=== PATIENT | male | born 1975 ===

== ENCOUNTER 2024-11-23 13:16 | Outpatient (REF) | payer BC, SELFPAY ==
[2024-11-23 15:22] LABS: Abs Immature Grans 0.01 10^3/uL (0.0-0.06); Absolute Basophil Count 0.05 10^3/uL (0.0-0.2); Absolute Lymphocyte Count 1.71 10^3/uL (1.2-3.4); Absolute Monocyte Count 0.62 10^3/uL (0.1-0.8); Absolute Neutrophil Count 3.76 10^3/uL (1.2-6.7); Basophils % 0.8 %; Eosinophils % 1.6 %; HCT 50.3 % (40.0-50.0); HGB 17.4 g/dL (13.5-17.5); Immature Grans % 0.2 %; Lymphocytes % 27.4 %; MCH 30.3 pg (27.0-33.0); MCHC 34.6 % (32.0-36.0); MCV 88 fL (80-95); MPV 10.3 fL (8.0-11.0); Monocytes % 9.9 %; Neutrophils % 60.1 %; Platelet Count 246 10^3/uL (130-400); RBC 5.74 10^6/uL (4.36-5.78); RDW 11.9 % (11.8-14.1); RDW-SD 38.1 fL; WBC 6.25 10^3/uL (4.4-10.8)
[2024-11-23 17:18] LABS: Hemoglobin A1C 5.3 % (<5.7)
[2024-11-23 17:23] LABS: ALT 32 U/L (16-63); AST 22 U/L (15-37); Albumin 4.2 g/dL (3.4-5.0); Alkaline Phosphatase 74 U/L (46-116); Anion Gap 13.4 mmol/L (3-11); BUN 15 mg/dL (7-18); Bilirubin, Total 0.7 mg/dL (0.2-1.0); CO2 21.6 mmol/L (21.0-32.0); CREATININE 0.6 mg/dL (0.70-1.30); Calcium 10.5 mg/dL (8.5-10.1); Calculated LDL 109 mg/dL (<100); Chloride 108 mmol/L (98-107); Cholesterol 201 mg/dL (<200); Estimated GFR 118.34 (mL/min/1.73m2); Glucose 90 mg/dL (74-106); HDL Cholesterol 55 mg/dL (>or=40); Potassium 4.4 mmol/L (3.5-5.1); Sodium 143 mmol/L (136-145); TSH 3.22 uIU/mL (0.36-3.74); Total Protein 7.6 g/dL (6.4-8.2); Triglyceride 186 mg/dL (<150)
[2024-11-24 10:43] LABS: HIV-1/2 Ag & Ab Screen Negative (Negative)
[2024-11-24 11:03] LABS: Hepatitis C Ab w Rflx HCV PCR Negative (Negative)
== END 2024-11-23 13:17 | disposition home or self-care (01) ==
LOC: NCHCN 13:16
PROVIDERS: Visit Provider Family Medicine
DX: Z00.00 Encounter for general adult medical examination without abnormal findings (principal)
CPT/HCPCS: 80053; 80061; 86803; 87389; 83036; 84443; 85025

== ENCOUNTER 2025-02-07 06:13 | Day surgery (SDC) | payer BC, SELFPAY ==
--- NOTE | 2025-02-06 03:35 | W.PREOPHP ---
Assessment and Plan Assessment and plan (1) Encounter for screening colonoscopy: Status: Acute Assessment and plan: We reviewed the role of screening colonoscopy as part of routine health maintenance. I reviewed the risks and the benefits of the procedure. Luisito had the opportunity to ask any questions. He is able to provide informed consent, and we can proceed with colonoscopy as planned History of Present Illness History of Present Illness Chief Complaint: Screening colonoscopy Narrative: 48 y/o male with history of ETOH abuse and anxiety presents for colonoscopy screening pre-op. His last screening was in 2019 , which was unremarkable. He has a family history of colon cancer in his father whom was dx at the age of 60. He denies any changes in bowel habits including bloody or black tarry stools, abdominal pain, diarrhea or constipation. He denies constitutional symptoms. He denies chest pain, palpitations, dyspnea or dyspnea with exertion. He denies prior history or family history of adverse reactions or complications with anesthesia. The patient denies any history of stroke, [place], seizures, bleeding or clotting disorders. He denies having any implanted metal in his body. Since his last office encounter, there have been no major changes with regards to the interval history PFSH All Active Problems Encounter for screening colonoscopy (Acute) Anxiety (Chronic) Poor sleep (Acute) Medical History History of ETOH abuse (~2020) Family history of colon cancer in father dx in 60's Surgical History H/O inguinal hernia repair R History of colonoscopy (~2019) Social History Smoking/Tobacco Use Status: Former Tobacco Use Smoking risk assessment performed?: Yes Alcohol Intake: never Drug use: Never Substance use type: does not use Housing: house Do you feel safe at home: Yes Do you feel safe in your relationship?: Yes Meds Allergies and Home Medications Allergies Allergy/AdvReac Type Severity Reaction Status Date / Time macadamia nut oil Allergy Intermediate Itching Verified 02/07/25 06:26 Home Medications ?Medication ?Instructions ?Recorded ?Confirmed ?Type acetylcysteine 600 mg capsule (NAC) 600 mg PO BID 12/02/24 02/04/25 History trazodone 50 mg tablet 50 mg PO QHS PRN 12/02/24 02/04/25 History loratadine 10 mg tablet 10 mg PO DAILY 02/04/25 02/07/25 History (Fernando) Exam Const General: cooperative, healthy appearing and not in acute distress Neck Neck: normal visual inspection, no lymphadenopathy and supple Resp Effort & Inspection: normal respiratory effort Auscultation: clear to auscultation bilaterally Cardio Jugular venous pressure: no JVD Rate: regular rate Rhythm: regular rhythm Heart Sounds: S1 normal and S2 normal GI Inspection: normal to inspection Palpation: soft, no guarding, no hernias and nontender Percussion: normal to percussion Auscultation: normal bowel sounds Neuro General: patient alert, patient awake and patient oriented x3 Psych Appearance: grossly normal
--- NOTE | 2025-02-06 03:36 | PDOC.DSDIS_ITS ---
Date of service: 02/07/25 Discharge Plan Disposition Patient Disposition: Home Condition: Good Discharge Details Reason For Visit: Screening colonoscopy Attending Provider: Emeka Calvert Primary Care Provider: Donny Spivey Home Meds and New Rx's Prescriptions: Continued acetylcysteine [NAC] 600 mg capsule 600 mg PO BID trazodone 50 mg tablet 50 mg PO QHS PRN loratadine [Allerclear] 10 mg tablet 10 mg PO DAILY Discontinued polyethylene glycol 3350 17 gram/dose powder 238 g PO ONCE Qty: 238 0RF Rx Instructions: take per colonoscopy instructions bisacodyl [Dulcolax (bisacodyl)] 5 mg tablet,delayed release (DR/EC) 5 mg PO ONCE Qty: 4 0RF Rx Instructions: take per colonoscopy instructions Discharge Instructions Instructions: Colon polyps, Diverticulosis Additional Instructions: Luisito, it was a pleasure meeting you today, and hope you are comfortable through the procedure. Things went very smoothly. I did find, and remove what I suspect is once a polyp today. I will send this off to the pathologist for the review. 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 However, with your family history, at the very longest, I would recommend a 5-year interval. The pathology results will take a week or 2 to get back, but once my office has that information, we will be in touch with any other recommendations. Incidentally, you also have just a little bit of diverticulosis. I will attach some basic information to hear about typical approaches to diverticular disease. 1. If tolerated, consume a soft, low fiber diet for 1-2 days. 2. Do not drive, drink alcohol, operate machinery, make critical decisions, or do activities that require coordination or balance for 24 hours. 3. Because air was put into your colon during the procedure, expelling air from your rectum (passing gas or farting) is normal. 4. You may not have a bowel movement for 1-3 days because of the colonoscopy prep. This is normal. 5. Go directly to the emergency room if you notice any of the following: Develop chills (warm to touch), or if you have a thermometer and your temperature is above 101 Difficulty breathing or difficultly swallowing Persistent vomiting Severe abdominal pain, other than gas cramps Severe chest pain Black, tarry stools Any bleeding ? exceeding one tablespoon 6. Call your physician if the site where your intravenous was started becomes red, swollen, painful, and warm to touch. 7. Your physician has reviewed your pre-procedure medications. Please continue to take those medications as previously ordered. You will be given specific information/education regarding any changes to your medications before leaving. Activity:: Activity as Tolerated Diet:: As Tolerated DS: Diagnosis Discharge Diagnosis (1) Encounter for screening colonoscopy: Status: Acute Asessment and Plan: Follow-up on polypectomy results
--- NOTE | 2025-02-06 03:37 | W.COLOREPORT ---
Date of service: 02/07/25 Time of Service: 08:23 Colonoscopy Report Date of procedure: 02/07/25 Pre-op diagnosis general: Screening colonoscopy Post-op diagnosis procedure note: other (Colon polyp, diverticulosis) Procedure: Colonoscopy with polypectomy Surgeon: Emeka Calvert Anesthesia Type: General:No Airway Estimated blood loss (mL): 5 Pathology: other (0.25 cm flat polyp at 70 cm) Complications: None Disposition: same day Indications: Luisito is a 49-year-old man who needs a screening colonoscopy. Prep: Miralax/Dulcolax Procedure Start Time: 07:40 Procedure End Time: 08:04 Retraction Time: 7 Findings: Sigmoid diverticulosis, 0.25 cm flat polyp at 70 cm Procedure Description: After the induction of anesthesia, and with Luisito in left lateral decubitus position, I began by performing an external anorectal exam.? Perineum and skin were normal, as was the anal verge.? There was no evidence of external hemorrhoids.? Next, I performed a digital rectal exam.? I did not appreciate any abnormal findings.? Next, I advanced a colonoscope into the rectal vault.? I performed retroflexion.? This appeared normal.? Using insufflation, I then advanced the colonoscope beyond the rectal folds and into the sigmoid colon before advancing towards the cecum.? The scope was noted to be in the cecum by identification of the ileocecal valve and appendiceal orifice.? I then began withdrawing the colonoscope using repeated irrigation as necessary for full evaluation of the colonic mucosa. Around 70 cm from the anal verge was a 0.25 cm flat polyp. Narrowband imaging was used to assist with the analysis. This was removed with cold forceps. There was minimal bleeding. I continued withdrawing the colonoscope. There was some evidence of sigmoid diverticulosis. ?Once the scope was withdrawn to the level of the rectum, great care was taken to examine portions of the rectal folds.? Finally, the scope was withdrawn and the patient was brought to the same-day surgery recovery unit as the anesthetic wore off. ?The findings and instructions were shared with the patient prior to discharge. Denver Bowel Prep Denver Bowel Prep Right Colon: 3 Left Colon: 2 Transverse Colon: 3 Total Score: 8
[2025-02-07 06:32] VITALS: BP 139/90; PULSE 56; RESP 16; TEMP 36; O2SAT 99
[2025-02-07] MEDS: Lactated Ringers 1,000 ML 80 ML IV (06:55)
--- NOTE | 2025-02-07 07:03 | ANES.PREOP_ITS ---
General Info Date of Service Date Performed: 02/07/25 Height: 5 ft 10 in Weight: 87.7 kg Body Mass Index (BMI): 27.7 Surgical Procedure: Operation Date: 02/07/25 07:35 Proposed Procedure Side Surgeon p Colonoscopy Emeka Cavlert MD Meds Allergies and Home Medications Allergies Allergy/AdvReac Type Severity Reaction Status Date / Time macadamia nut oil Allergy Intermediate Itching Verified 02/07/25 06:26 Home Medication ?Medication ?Instructions ?Recorded acetylcysteine 600 mg capsule (NAC) 600 mg PO BID 11/10 12/03 trazodone 50 mg tablet 50 mg PO QHS PRN 12/02/24 loratadine 10 mg tablet 10 mg PO DAILY 02/04/25 (Allerclear) Current Visit Medications: Current Medications Generic Name Dose Route Start Last Admin Trade Name Freq PRN Reason Stop Dose Admin Ringer's Solution 1,000 mls @ 80 mls/hr 02/07/25 06:00 02/07/25 06:55 IV 02/07/25 23:59 80 mls/hr INFUSION JUAN LUIS Administration IV Miscellaneous Supplies 1 each 02/07/25 06:00 Iv Access IV 02/07/25 23:59 DIRECTED JUAN LUIS Sodium Chloride 0 ml 02/07/25 06:00 Normal Saline Flush 10 Ml Syr IV 02/07/25 23:59 PRN PRN Sodium Chloride 0 ml 02/07/25 06:00 Normal Saline 10 Ml Vial IJ 02/07/25 23:59 DIRECTED PRN Sterile Water 0 ml 02/07/25 06:00 Water,Injection,Sterile 10 Ml Vial IJ 02/07/25 23:59 DIRECTED PRN PFSH Active Problems Active Problems: Problem Status Onset Code Encounter for screening colonoscopy Acute Z12.11 Anxiety Chronic F41.9 Poor sleep Acute Z72.820 Medical History Medical History History of ETOH abuse (~2020) Family history of colon cancer in father dx in 60's Surgical History Surgical History H/O inguinal hernia repair R History of colonoscopy (~2019) Tobacco Smoking/Tobacco Use Status: Former Tobacco Use Passive smoking exposure: No Alcohol Alcohol Intake: never Substance Use Substance use type: does not use Vital Signs and Lab Results Vital Signs Most Recent Vital Signs in EMR: Most Recent Vital Signs Temp Pulse Resp BP Pulse Ox 36 C L 56 L 16 139/90 99 02/07/25 06:32 02/07/25 06:32 02/07/25 06:32 02/07/25 06:32 02/07/25 06:32 Anesthesia Assessment and Plan Anesthesia History Personal History: No History of Anesthesia Complications Family History: No Family History of Anesthesia Complications and Other Exercise Tolerance Exercise Tolerance: Metabolic Equivalents>4 Pertinent Negatives Pertinent Negatives: No Symptoms of GERD Cardiac & Pulmonary Exam Cardiac Exam: Normal S1/S2 Heart Sounds Pulmonary Exam: Clear Bilateral Breath Sounds Implantable Cardiac Device Does patient have a Pacemaker or an ICD?: No Airway Exam Known Difficult Airway: No Mallampati Class: 2 Mouth Opening: Normal (> 3cm) Thyromental Distance: Greater than 3 cm Neck Range of Motion: Full ROM Neck Circumference: Normal Teeth Condition: Normal Dentition ASA Classification ASA Score: ASA 2 Emergency Case?: No NPO Status NPO Status: NPO Clears >2 hours, Solids >8 hours Anesthesia Plan Resuscitation Status: Full Code Anesthesia Technique: General Anesthesia Airway Planned: Natural Airway Monitors Used: Standard Monitors
[2025-02-07 07:04] VITALS: BMI 27.7
--- NOTE | 2025-02-07 07:53 | BOWEL_PTH ---
PATIENT: Luisito Rascon LOC: [facility] U#:[id number] AGE/SX: 49/M ROOM: RE02/07/[address]: Emeka Calvert MD : 1975 BED: DIS: 02/07/2025 SPEC #: [id number] RECD: 02/07/25 12:58 STATUS: DEBRA REQ #: [id number] JACOB: 02/07/25 07:[address]: Emeka Calvert DEPT: Surgical Specimen RECD BY: Cathy Gonzalez Tissues: 1 - BIOPSY BOWEL Procedures: GROSS AND MICRO LEVEL 4 Comments: [id number]
[2025-02-07 08:10] VITALS: BP 127/91; PULSE 69; RESP 17; TEMP 36.2; O2SAT 97
--- NOTE | 2025-02-07 08:20 | W.ANESPOSTOP ---
Postoperative Evaluation Date, Time and Location Date Performed: 02/07/25 Time Performed: 08:20 Patient Location: Day Surgery Unit Vital Signs Most Recent Imported Vital Signs: Most Recent Vital Signs Temp Pulse Resp BP Pulse Ox 36 C L 56 L 16 139/90 99 02/07/25 06:32 02/07/25 06:32 02/07/25 06:32 02/07/25 06:32 02/07/25 06:32 Pain Score Most Recent Pain Score: Most Recent Pain Score Pain Level 0 02/07/25 06:32 Assessment Mental Status: Awake (Alert & Oriented to Patient Baseline) Airway and Respiratory Function: Patent airway with normal (patient baseline) respiratory exam Cardiovascular Function: Hemodynamically Stable Hydration Status: Adequately Hydrated Nausea & Vomiting: No Nausea or Vomiting Pain: Pt. Denies Any Pain Peripheral Nerve Block: Patient did not receive a nerve block
[2025-02-07 08:42] VITALS: BP 129/98; PULSE 61; RESP 17; TEMP 36.5; O2SAT 96
== END 2025-02-07 08:47 | disposition home or self-care (01) ==
LOC: SUR 06:13
PROVIDERS: PCP Family Medicine; Visit Provider Surgery
PROC: 0DJD8ZZ Inspection of Lower Intestinal Tract, Via Natural or Artificial Opening Endoscopic (ICD-10-PCS; CPT 45378; principal; 2025-02-07 07:30)
DX: Z12.11 Encounter for screening for malignant neoplasm of colon (principal); Z80.0 Family history of malignant neoplasm of digestive organs; D12.4 Benign neoplasm of descending colon; K57.30 Diverticulosis of large intestine without perforation or abscess without bleeding
CPT/HCPCS: 45380; 88305; J2003; J2704